=== PATIENT | male | born 1980 | race Caucasian/White ===

== ENCOUNTER → 2016-05-02 | Outpatient (CLI) | payer OTHER ==
--- NOTE | 2016-05-04 17:40 | SLEEPCENT ---
DATE OF PROCEDURE: 05/02/2016 REFERRING PHYSICIAN: Nisreen Brown Nocturnal polysomnography was performed for evaluation of sleep apnea syndrome symptoms in this patient with sleep difficulty for many years, experiencing excessive somnolence and nonrestorative sleep. 6 hours and 31 minutes of data were reviewed. There were 365 minutes of sleep identified. Sleep latency was normal at 6 minutes. Rapid eye movement (REM) latency was prolonged at 175 minutes. Sleep architecture was fair with four REM periods appreciated. Overall sleep efficiency was 94.4%. The patient's EKG showed a sinus rhythm with an average heart rate of 58 beats per minute. EEG showed reasonably normal waveforms for awake and sleep. There were six respiratory events identified of 10 seconds in duration or greater for an apnea hypopnea index within normal limits of 51. Snoring was noted over the course of the study and arousals from respiratory events occurred 1.5 times per hour. There was some limb activity noted, but no trains of events. Limb movement arousal index was borderline at 5.7. IMPRESSION: Normal nocturnal polysomnography with snoring. RECOMMENDATIONS: Interventions to optimize upper airway tone and help reduce snore related arousals.
== END ==
LOC: M SLEEP 19:46
PROVIDERS: ATTEND Nurse Practitioner Adult Health
DX: R06.83 Snoring (principal)

== ENCOUNTER 2017-12-11 06:58 | Day surgery (SDC) | payer OTHER ==
[2017-12-11] MEDS: NS 1,000 ML IV (06:00)
[2017-12-11] MEDS ORDERED: CIPRODEX OTIC SUSP 7.5ML As Ordered (07:15)
[2017-12-11] MEDS ORDERED: LIDOCAINE 2% INJ 100 MG/5 ML SDV (FOR ANES.) As Ordered (07:34)
[2017-12-11] MEDS ORDERED: PROPOFOL 200 MG/20 ML VIAL As Ordered (07:34)
[2017-12-11] MEDS ORDERED: fentaNYL 100 MCG/2 ML INJECTION (J3010) As Ordered (07:34)
== END 2017-12-11 09:18 | disposition home or self-care (01) ==
LOC: M OPP 06:58
DX: R12 Heartburn (principal); Z87.11 Personal history of peptic ulcer disease; K22.8 Other specified diseases of esophagus; K44.9 Diaphragmatic hernia without obstruction or gangrene; K31.89 Other diseases of stomach and duodenum; K21.9 Gastro-esophageal reflux disease without esophagitis; G43.909 Migraine, unspecified, not intractable, without status migrainosus; Z88.5 Allergy status to narcotic agent; Z79.899 Other long term (current) drug therapy
CPT/HCPCS: 43239

== ENCOUNTER → 2018-10-05 | Outpatient (CLI) | payer OTHER ==
[~2018-10-05] MED LIST: ADDE20CA3 PO; ATOM60CA2 PO; BACT400T PO; CITA20TA6 PO; CLAR1TAB13 PO; EXCETAB80 PO; GABA-845 PO; MOBI4TAB PO; OMEP40CA2 PO
--- NOTE | 2018-10-09 12:27 | REPVR ---
EXAM: MR Thoracic Spine Without Contrast EXAM DATE/TIME: 10/05/2018 5:48 PM CLINICAL HISTORY: 37 years old, male; Pain in thoracic spine; Without myelpathy or radiculopathy; Patient HX: Mid back pain; Additional info: Thoracic pain TECHNIQUE: Imaging protocol: Multiplanar magnetic resonance images of the thoracic spine without intravenous contrast. COMPARISON: CR T-SPINE - OUTSIDE PRIOR 08/24/2018 10:16 AM (report not provided) FINDINGS: Vertebral body heights are intact. Alignment is maintained. The spinal cord appears normal in signal. There are mild degrees of disc desiccation indicating intervertebral disc degeneration. The visualized mediastinal and abdominal structures appear unremarkable. T1-2: Included on the sagittal sequences only, there appears to be a small osteophytic ridge with very mild bilateral neural foraminal narrowing. T2-3: Disc osteophyte complex combining with facet arthrosis to lead to very mild right and mild left neural foraminal narrowing without significant spinal stenosis. T3-4: Small osteophytic ridge without significant neural foraminal narrowing or spinal stenosis. T4-5: No significant disc displacement. T5-6: No significant disc displacement. T6-7: Small disc osteophyte complex combining with facet arthrosis to lead to mild bilateral neural foraminal narrowing without significant spinal stenosis. T7-8: Small disc osteophyte complex leading to mild bilateral neural foraminal narrowing without significant spinal stenosis. T8-9: Minimal bulge without significant neural foraminal narrowing or spinal stenosis. T9-10: Small broad-based left paracentral/foraminal protrusion leading to very mild left neural foraminal narrowing without significant spinal stenosis. T10-11: Small disc osteophyte complex leading to very mild bilateral neural foraminal narrowing without significant spinal stenosis. T11-12: No significant disc displacement. T12-L1: Small bulge leading to very mild bilateral neural foraminal narrowing without significant spinal stenosis. If surgery is considered, recommend level confirmation. IMPRESSION: Multilevel disc desiccation indicating intervertebral disk degeneration with disc displacements as described. Electronically signed by: Augustine Howard On 10/09/2018 12:26:54 PM
== END ==
LOC: M RAD 16:44
PROVIDERS: ATTEND Physician Assistant
DX: M54.6 Pain in thoracic spine (principal)

== ENCOUNTER 2019-01-09 10:08 | Day surgery (SDC) | payer OTHER ==
[~2019-01-09] VITALS: Ht 182.9 cm; Wt 118.4 kg
[~2019-01-09 10:08] MED LIST changes: +LORA-479 PO; +NS 1,000 ML IV ONE; -OMEP40CA2 PO; +OMEP40CA97 PO; +PANT40TA3 PO
[2019-01-09] MEDS ORDERED: PROPOFOL 500 MG/50 ML VIAL As Ordered ONE (12:01)
[2019-01-09] MEDS ORDERED: LIDOCAINE 2% INJ 100 MG/5 ML SDV (FOR ANES.) As Ordered ONE (12:01)
[2019-01-09] MEDS ORDERED: fentaNYL 100 MCG/2 ML INJECTION (J3010) As Ordered ONE (12:01)
--- NOTE | 2019-01-09 12:07 | ROOR ---
Patient Name: Mauro Godoy Procedure Date: 01/09/2019 11:42 AM Date of : 1980 Age: 38 Room: [facility] Gender: Male Note Status: Finalized Procedure: Upper Endoscopy + Biopsies Indications: Follow-up of Gorman's esophagus Providers: Ugo Trujillo MD Referring MD: Victor Hugo Mayers Requesting Provider: Medicines: Monitored Anesthesia Care Complications: No immediate complications. Procedure: Pre-Anesthesia Assessment: - The heart rate, respiratory rate, oxygen saturations, blood pressure, adequacy of pulmonary ventilation, and response to care were monitored throughout the procedure. The Endoscope was introduced through the mouth, and advanced to the second part of duodenum. The upper GI endoscopy was accomplished without difficulty. The patient tolerated the procedure well. Findings: The Z-line was irregular and was found 39 cm from the incisors. Multiple biopsies were obtained with cold forceps for evaluation to rule out Gorman's Esophagus randomly at the gastroesophageal junction. A small hiatal hernia was present. No other significant abnormalities were identified in a careful examination of the stomach. The exam of the duodenum was otherwise normal. Impression: - Z-line irregular, 39 cm from the incisors. - Small hiatal hernia. - Multiple biopsies were obtained at the gastroesophageal junction. - The examination was otherwise normal. Recommendation: - Patient has a contact number available for emergencies. The signs and symptoms of potential delayed complications were discussed with the patient. Return to normal activities tomorrow. Written discharge instructions were provided to the patient. - High fiber diet. - Discharge patient to home. - Continue present medications. - Await pathology results. - Telephone GI clinic for pathology results in 1 week. - Return to referring physician. - The findings and recommendations were discussed with the patient's family. Ugo Trujillo MD Ugo Trujillo MD 01/09/2019 12:06:48 PM Electronically signed by Ugo Trujillo MD Number of Addenda: 0 Note Initiated On: 01/09/2019 11:42 AM Estimated Blood Loss: Estimated blood loss: none.
[2019-01-09 12:25] VITALS: BP 149/85
== END 2019-01-09 12:33 | disposition home or self-care (01) ==
LOC: M OPP 10:08
PROVIDERS: ATTEND Internal Medicine Gastroenterology
DX: K22.8 Other specified diseases of esophagus (principal); K44.9 Diaphragmatic hernia without obstruction or gangrene; K22.70 Barrett's esophagus without dysplasia; R12 Heartburn; Z79.899 Other long term (current) drug therapy; Z88.5 Allergy status to narcotic agent
CPT/HCPCS: 43239; 88305; J3010